=== PATIENT | female | born 1955 | race Caucasian/White ===

== ENCOUNTER 2016-09-11 19:07 | Emergency (ER) | payer BC ==
[~2016-09-11] VITALS: Ht 160 cm; Wt 84.1 kg
[~2016-09-11 19:07] MED LIST: AMITRIPTYLINE H10 M1; FLEXERIL10 MG PO; LISINOPRIL10 MG PO; LORTAB 2.5/5001 TAB PO; LYRICA 75MG CAP75 MG PO; METFORMIN500 MG PO; MOTRIN800 MG PO; NEURONTIN100 MG/CAP; PERCOCET 325 MG1 TA2 PO; PRAVACHOL10 MG PO; VALIUM 5MG T5 MG/TAB PO
[2016-09-11 19:13] VITALS: BP 169/71; TEMP 98.2
[2016-09-11] MEDS ORDERED: NORCO 325 MG-7.1 TAB PO (20:59)
[2016-09-11 21:13] VITALS: PULSE 84
== END 2016-09-11 21:13 | disposition home or self-care (01) ==
LOC: COL.ER 19:07
DX: S52.571A Other intraarticular fracture of lower end of right radius, initial encounter for closed fracture (principal); W01.198A Fall on same level from slipping, tripping and stumbling with subsequent striking against other object, initial encounter; Y92.007 Garden or yard of unspecified non-institutional (private) residence as the place of occurrence of the external cause; I10 Essential (primary) hypertension; E11.9 Type 2 diabetes mellitus without complications; Z79.84 Long term (current) use of oral hypoglycemic drugs; Z87.891 Personal history of nicotine dependence

== ENCOUNTER 2016-11-06 09:00 | Outpatient (RCR) | payer BC ==
[~2016-11-06 09:00] MED LIST changes: +NORCO 325 MG-7.1 TAB PO
== END 2016-12-05 13:41 ==
LOC: WSOT 09:00
DX: Z87.81 Personal history of (healed) traumatic fracture (principal)

== ENCOUNTER → 2016-11-21 | Outpatient (CLI) | payer BC | LOC: MC.RAD 08:39 | DX: Z12.31 Encounter for screening mammogram for malignant neoplasm of breast (principal) ==

== ENCOUNTER → 2017-07-18 | Outpatient (CLI) | payer BC ==
[~2017-07-18] VITALS: Ht 160 cm; Wt 87.1 kg
[~2017-07-18] MED LIST changes: +ADVIL200 MG PO; +CYMBALTA 30MG30 MG PO; +JANUMXR500-50 PO; +LIPITOR 10MG10 MG PO; -LISINOPRIL10 MG PO; +ZESTRIL 10MG10 MG PO
[2017-07-18 07:40] VITALS: BP 145/95; PULSE 81
== END ==
LOC: COL.RAD 07:14
DX: E04.2 Nontoxic multinodular goiter (principal)

== ENCOUNTER 2017-09-26 10:16 | Emergency (ER) | payer BC ==
[~2017-09-26] VITALS: Ht 160 cm; Wt 84.1 kg
[2017-09-26 10:18] VITALS: TEMP 98
[2017-09-26] MEDS ORDERED: JANUMXR1000-50 PO (10:57)
[2017-09-26] MEDS ORDERED: NORCO 325 MG-51 TAB PO (12:38)
[2017-09-26 14:00] VITALS: BP 164/89; PULSE 85
== END 2017-09-26 14:00 | disposition home or self-care (01) ==
LOC: COL.ER 10:16
DX: S42.202A Unspecified fracture of upper end of left humerus, initial encounter for closed fracture (principal); I10 Essential (primary) hypertension; E11.9 Type 2 diabetes mellitus without complications; Z79.84 Long term (current) use of oral hypoglycemic drugs; W01.0XXA Fall on same level from slipping, tripping and stumbling without subsequent striking against object, initial encounter
CPT/HCPCS: J1170; J2405; J3010

== ENCOUNTER → 2018-06-11 | Outpatient (CLI) | payer BC ==
[~2018-06-11] MED LIST changes: +JANUMXR1000-50 PO; +NORCO 325 MG-51 TAB PO
== END ==
LOC: MC.RAD 14:00
DX: Z12.31 Encounter for screening mammogram for malignant neoplasm of breast (principal)

== ENCOUNTER 2020-07-25 11:01 | Observation (INO) | payer BC ==
[2020-07-25] VITALS (9 sets, daily range): BP systolic 125–135; BP diastolic 52–74; PULSE 82–96; TEMP 97.9–98.1
[~2020-07-25] VITALS: Ht 160 cm; Wt 80.0 kg
[2020-07-25 11:44] LABS: BASO # 0.1 (0.0-0.2); BASO % 0.9 % (0.0-2.0); EOS # 0.3 (0.0-0.7); GRAN # 5.1 (1.4-6.5); GRAN % 57.2 % (42.2-75.2); HEMATOCRIT 46.6 % (37.0-47.0); HEMOGLOBIN 15.3 g/dl (12.5-16.0); LYMPH # 2.8 (1.2-3.4); LYMPH % 30.8 % (20.0-51.0); MEAN CELL VOLUME 91 fl (80.0-100.0); MEAN CORPUSCULAR HEMOGLOBIN 30 pg (27.0-31.0); MEAN CORPUSCULAR HGB CONC 33 g/dl (33.0-37.0); MEAN PLATELET VOLUME 12.7 fl (7.4-10.4); MONO # 0.7 (0.1-0.6); MONO % 7.9 % (1.7-9.3); PLATELET COUNT 183 K/mm3 (130-400); RED BLOOD COUNT 5.14 M/mm3 (4.10-5.30); REDCELL DISTRIBUTION WIDTH-CV 12.9 % (11.5-14.5)
[2020-07-25 11:48] LABS: INR 1.1 (0.8-3.0)
[2020-07-25 11:50] LABS: ALBUMIN 4.3 gm/dL (3.5-5.0); BILIRUBIN,TOTAL 0.3 mg/dL (0.0-1.0); CALCIUM 9.5 mg/dL (8.4-10.2); CREATININE, serum 0.66 (0.52-1.25); POTASSIUM 4.1 mmol/L (3.4-5.0); TOTAL PROTEIN 7.5 gm/dL (6.4-8.2)
[2020-07-25] MEDS ORDERED: MASON NATURAL2000 IU PO (13:00)
[2020-07-25] MEDS ORDERED: JANUMXR500-50 (13:00)
[2020-07-25] MEDS ORDERED: CALCIUM CARBON650 M2 (13:00)
--- NOTE | 2020-07-25 17:39 | NUR ---
Patient alert and oriented, answers questions appropriately. See assessment. Abdomen soft, non tender, non distended. Bowel sounds active x4 quads. Lap sites to abdomen with band aids CDI. Post op exercises reviewed with patient and family. No c/o at this time.
--- NOTE | 2020-07-25 19:20 | NUR ---
Patient assessed at this time. Alert and oriented x 4, and able to make needs known. Denies having pain and discomfort at this time. Peripheral INT to left AC flushed. Site without redness, warmth, swelling, and pain. IV fluids D/C'd after completion due to patient eatting and drinking well. Denies having SOB and dyspnea. LS CTA. Respirations even and unlabored HRR. Capillary refill less than 3 seconds. Non-tenting skin turgor. BSAx4. Abdomen soft. 3 bandaids to lap sites from lap lizbet are CDI. Denies discomfort to sites. No drainage, redness, or swelling noted to sites. No edema noted. Patient calling for assistance to go to the bathroom. Voices no questions, needs, or concerns at this time. Resting in bed with call light within reach.
[2020-07-26 00:36] VITALS: BP 132/63; PULSE 78; TEMP 98.5
[2020-07-26 04:57] VITALS: BP 133/54; PULSE 70; TEMP 98
--- NOTE | 2020-07-26 05:38 | NUR ---
Patient has been resting in bed with call light within reach. Has denied having pain and discomfort this shift. Lap sites to abdomen are CDI. Voices no questions, needs, or concerns at this time. Resting in bed with call light within reach.
[2020-07-26 07:40] VITALS: BP 129/56; PULSE 70; TEMP 98.3
--- NOTE | 2020-07-26 09:00 | NUR ---
Patient alert and oriented, answers questions appropriately. See assessment. Abdomen soft, non tender, non distended. Bowel sounds active x4 quads. +Flatus. Lap sites to abdomen with edges well approximated, no redness or drainage. Post op exercises reviewed with patient. No c/o at this time.
--- NOTE | 2020-07-26 09:49 | NUR ---
RICHARD met with the patient and her , Mor (ph#[phone]), to discuss discharge plan. The patient lives in [place] with her . She reports independence with ADLs and has a cane and walker. The patient's PCP is Dr. Angely Vincent and she receives her medications from [facility]. She reports no difficulties obtaining her meds. The patient does not have a DPOA-HC, but her and her were interested in a form. RICHARD provided. The patient plans to return home with her upon discharge. No additional needs at this time.
--- NOTE | 2020-07-26 10:44 | NUR ---
Discharge instructions reviewed with patient and spouse, verbalized understanding. Discharged via wheelchair to auto/home with spouse at 1030.
== END 2020-07-26 10:30 | disposition home or self-care (01) ==
LOC: COL.ER 11:01 → SURG 14:28
PROVIDERS: Emergency Medicine; ADMIT Surgery
DX: K80.12 Calculus of gallbladder with acute and chronic cholecystitis without obstruction (principal); E11.9 Type 2 diabetes mellitus without complications; E78.5 Hyperlipidemia, unspecified; I10 Essential (primary) hypertension; F32.9 Major depressive disorder, single episode, unspecified; Z79.84 Long term (current) use of oral hypoglycemic drugs; Z79.899 Other long term (current) drug therapy; Z87.891 Personal history of nicotine dependence
CPT/HCPCS: G0378; G0379; J0330; J1100; J1170; J1815; J2250; J2405; J2704; J3010; J7030

== ENCOUNTER → 2020-12-11 | Outpatient (CLI) | payer BC ==
[~2020-12-11] MED LIST changes: +CALCIUM CARBON650 M2; +JANUMXR500-50; +MASON NATURAL2000 IU PO
== END ==
LOC: COL.RAD 07:59
DX: H93.A9 Pulsatile tinnitus, unspecified ear (principal)
CPT/HCPCS: Q9967

== ENCOUNTER 2021-12-15 11:12 | Emergency (ER) | payer MEDICARE, OTHER ==
[~2021-12-15] VITALS: Ht 160 cm; Wt 77.7 kg
[2021-12-15 11:18] VITALS: TEMP 97.8
[2021-12-15] MEDS ORDERED: PERCOCET 325 MG1 TA2 PO (12:27)
[2021-12-15 13:15] VITALS: BP 122/81; PULSE 84
== END 2021-12-15 13:19 | disposition home or self-care (01) ==
LOC: COL.ER 11:12
DX: S52.502A Unspecified fracture of the lower end of left radius, initial encounter for closed fracture (principal); S52.602A Unspecified fracture of lower end of left ulna, initial encounter for closed fracture; W01.0XXA Fall on same level from slipping, tripping and stumbling without subsequent striking against object, initial encounter; Y92.009 Unspecified place in unspecified non-institutional (private) residence as the place of occurrence of the external cause
CPT/HCPCS: J2405; J3010

== ENCOUNTER 2023-12-06 11:54 | Emergency (ER) | payer MEDICARE, OTHER ==
[~2023-12-06] VITALS: Ht 160 cm; Wt 75.0 kg
[2023-12-06 14:57] VITALS: BP 131/76; PULSE 90; TEMP 98.4
== END 2023-12-06 14:57 | disposition home or self-care (01) ==
LOC: COL.ER 11:54
DX: S93.401A Sprain of unspecified ligament of right ankle, initial encounter (principal); S80.212A Abrasion, left knee, initial encounter; W18.30XA Fall on same level, unspecified, initial encounter